=== PATIENT | female | born 1985 | race Two or more races ===

== ENCOUNTER 2016-10-26 20:28 | Emergency (ER) | payer SELFPAY ==
[~2016-10-26] VITALS: Ht 157.5 cm; Wt 68.0 kg
[2016-10-26 20:42] VITALS: BP 129/70
[2016-10-26 22:40] LABS: OBC FLU VALID
--- NOTE | 2016-10-26 22:59 | PHYS DOC ---
Past Medical History Past Medical History: No Pertinent History Past Surgical History: No Surgical History Alcohol Use: None Drug Use: None Adult General Chief Complaint Chief Complaint: FEVER HPI HPI This is a 31-year-old female who's had 1 day of myalgias and cough with mild nausea but no vomiting. Patient states she has been able to tolerate oral fluids but has felt somewhat weaker than normal. Patient is approximately 6 months . She denies any vaginal bleeding or discharge. She denies any dysuria or hematuria. She denies any abdominal pain. She reports subjective fever and chills with her symptoms. Review of Systems Review of Systems Constitutional: Has fever, denies chills [] Eyes: Denies change in visual acuity, redness, or eye pain [] HENT: Denies nasal congestion or sore throat [] Respiratory: Denies cough or shortness of breath [] Cardiovascular: No additional information not addressed in HPI [] GI: Denies abdominal pain, has nausea, denies vomiting, denies bloody stools or diarrhea [] : Denies dysuria or hematuria [] Musculoskeletal: Denies back pain or joint pain [] Integument: Denies rash or skin lesions [] Neurologic: Denies headache, focal weakness or sensory changes [] Endocrine: Denies polyuria or polydipsia [] Current Medications Current Medications Current Medications Medications (Trade) Dose Ordered Sig/Lesvia Start Time Stop Time Status Last Admin Dose Admin Oseltamivir Phosphate (Tamiflu) 75 mg 1X ONCE 10/26/16 23:15 10/26/16 23:15 DC 10/26/16 23:00 75 MG Allergies Allergies Allergies Coded Allergies Type Severity Reaction Last Updated Verified No Known Drug Allergies 10/26/16 No Physical Exam Physical Exam Constitutional: Well developed, well nourished, no acute distress, non-toxic appearance. [] HENT: Normocephalic, atraumatic, bilateral external ears normal, oropharynx moist, no oral exudates, nose normal. [] Eyes: PERRLA, EOMI, conjunctiva normal, no discharge. [] Neck: Normal range of motion, no tenderness, supple, no stridor. [] Cardiovascular:Heart rate regular rhythm, no murmur [] Lungs & Thorax: Bilateral breath sounds clear to auscultation [] Abdomen: Bowel sounds normal, soft, no tenderness, no masses, no pulsatile masses. [] Skin: Warm, dry, no erythema, no rash. [] Back: No tenderness, no CVA tenderness. [] Extremities: No tenderness, no cyanosis, no clubbing, ROM intact, no edema. [] Neurologic: Alert and oriented X 3, normal motor function, normal sensory function, no focal deficits noted. [] Psychologic: Affect normal, judgement normal, mood normal. [] Current Patient Data Vital Signs Vital Signs Date Time Temp Pulse Resp B/P Pulse Ox O2 Delivery O2 Flow Rate FiO2 10/26/16 20:42 98.5 108 20 100 Room Air 98.5 Lab Values Laboratory Tests Test 10/26/16 22:11 Influenza Type A Antigen Positive (NEGATIVE) Influenza Type B Antigen Negative (NEGATIVE) EKG EKG [] Radiology/Procedures Radiology/Procedures [] Course & Med Decision Making Course & Med Decision Making Pertinent Labs and Imaging studies reviewed. (See chart for details) 31-year-old female who is approximately 6 months is completely nontoxic in appearance and has influenza swabs that. are positive for influenza type a. A by mouth dose of Tamiflu was administered in the department and I'll be writing her a prescription for Tamiflu at home. I followed up with the OB doctor, Dr. Martinez, who states that Tamiflu is safe to be given in and that he would advise to treat her and to have the patient follow closely with her OB doctor the next several days. I gave her strict instructions to take Tamiflu and to remain well-hydrated and to return to the ER if she develops any worsening of her symptoms. She is very agreeable with this plan. There is no indication at this time to perform any laboratory workup as the patient is nontoxic and able to tolerate oral fluids. Dragon Disclaimer Dragon Disclaimer This electronic medical record was generated, in whole or in part, using a voice recognition dictation system. Departure Departure Impression: Primary Impression: Influenza A Additional Impression: Disposition: 01 HOME, SELF-CARE Condition: STABLE Referrals: NO PCP (PCP) Patient Instructions: Influenza A (H1N1) Additional Instructions: Please follow up with your OB doctor in the next 1-2 days for your influenza symptoms. Continue to drink plenty of fluids. Take your tamiflu as prescribed. Return to the ER if you develop any worsening of your symptoms. Scripts Oseltamivir Phosphate (Tamiflu)75 Mg [id number] Mg PO BID FLU #9 TAB Ref 0 Prov:ANISH MACK DO 10/26/16 Problem Qualifiers ANISH MACK DO Oct 26, 2016 22:58
[2016-10-26] MEDS ORDERED: OSEL75CA PO (23:01)
[2016-10-26] MEDS ORDERED: OSELTAMIVIR 75 MG CAPSULE PO ONE (23:15)
== END 2016-10-26 23:04 | disposition home or self-care (01) ==
LOC: ER 20:28
DX: O99.519 Diseases of the respiratory system complicating pregnancy, unspecified trimester (principal); J10.1 Influenza due to other identified influenza virus with other respiratory manifestations; Z3A.00 Weeks of gestation of pregnancy not specified
CPT/HCPCS: 87804; 99284

== ENCOUNTER 2017-01-16 03:02 | Inpatient (IN) | payer SELFPAY ==
[~2017-01-16] VITALS: Ht 148.6 cm; Wt 75.7 kg
[~2017-01-16 03:02] MED LIST: OSEL75CA PO
[2017-01-16] MEDS ORDERED: 0.9 % SODIUM CHLORIDE 10 ML DISP.SYRIN. IV PRN ×2 (04:45→12:45)
[2017-01-16] MEDS ORDERED: LIDOCAINE 1% PF 30 ML VIAL. INJ PRN (04:45)
[2017-01-16] MEDS ORDERED: TERBUTALINE 1 MG/ML VIAL. SQ PRN (04:45)
[2017-01-16] MEDS ORDERED: OXYTOCIN 30 UNIT/500 ML PREMIX 500 ML IV PRN ×2 (04:45→12:45)
[2017-01-16] MEDS ORDERED: ONDANSETRON PF 4 MG/2 ML VIAL. IV PRN (04:45)
[2017-01-16] MEDS ORDERED: ACETAMINOPHEN 325 MG TABLET. PO PRN ×2 (04:45→12:45)
[2017-01-16] MEDS ORDERED: FENTANYL PF 100 MCG/2 ML VIAL. IV PRN (04:45)
[2017-01-16] MEDS ORDERED: BUTORPHANOL 2 MG/ML VIAL. IV PRN (04:45)
[2017-01-16] MEDS ORDERED: MAG HYDROX/ALUMINUM HYD/SIMETH 30 ML ORAL.SUSP PO PRN ×2 (04:45→12:45)
[2017-01-16 04:49] VITALS: BP 119/60
[2017-01-16] MEDS: IV RINGERS,LACTATED 1000ML 1,000 ML IV SCH ×3 (05:10→20:35)
[2017-01-16 05:56] LABS: HEMATOCRIT 34.4 % (36.0-47.0); HEMOGLOBIN 11.2 g/dL (12.0-15.5); RED BLOOD COUNT 3.98 x10^6/uL (3.50-5.40); RED CELL DISTRIBUTION WIDTH 14.1 % (11.5-14.5); WHITE BLOOD COUNT 8.8 x10^3/uL (4.0-11.0)
[2017-01-16 06:58] LABS: BILIRUBIN,URINE NEGATIVE (NEG); GLUCOSE,URINE NEGATIVE (NEG); NITRITE,URINE NEGATIVE (NEG); PH,URINE 6.5; PROTEIN,URINE NEGATIVE (NEG-TRACE); UROBILINOGEN,URINE 0.2 mg/dL (0.2 mg/dL)
[2017-01-16 07:29] LABS: BACTERIA,URINE MANY /HPF (0-FEW); RBC,URINE 0 /HPF (0-2); SQUAMOUS EPITHELIAL CELL,UR MANY /LPF
[2017-01-16] MEDS ORDERED: BETAMET ACET&NA PHOS 30 MG/5 ML VIAL. IM ONE (10:30)
[2017-01-16] MEDS ORDERED: OXYTOCIN 10 UNIT/ML VIAL. ONE (12:28)
[2017-01-16] MEDS ORDERED: PHENYLEPH/MINERAL OIL/PETROLAT RECTAL OINTMENT 28GM TUBE. RC PRN (12:45)
[2017-01-16] MEDS ORDERED: DIPHENHYDRAMINE HCL 25 MG CAPSULE PO PRN (12:45)
[2017-01-16] MEDS ORDERED: OXYTOCIN 10 UNIT/ML VIAL. IM ONE (12:45)
[2017-01-16] MEDS ORDERED: SIMETHICONE 80 MG TAB.CHEW PO PRN (12:45)
[2017-01-16] MEDS ORDERED: BENZOCAINE 20% TOPICAL AEROSOL SPRAY 57GM CAN. TP PRN (12:45)
[2017-01-16] MEDS ORDERED: HYDROCORTISONE 1% TOPICAL OINTMENT 30GM TUBE. TP PRN (12:45)
[2017-01-16] MEDS ORDERED: MAGNESIUM HYDROXIDE 2,400 MG/30 ML ORAL.SUSP. PO PRN (12:45)
[2017-01-16] MEDS ORDERED: ZOLPIDEM 5 MG TABLET. PO PRN (12:45)
--- NOTE | 2017-01-16 12:46 | PDOC ---
VAGINAL DELIVERY DATE DATE: 01/16/17 TIME: 12:44 : 4 Para: 3 EDC: February 07, 2017 VAGINAL DELIVERY: VTX 05/17/9 SEX: Male WEIGHT 7/5 Nuchal Cord: No Amniotic Fluid: Clear PAIN: Natural EPISIOTOMY: No EXTENSION: No COMPLICATIONS None CONDITION Stable Signs of Intrauterine Infectio: None Shoulder Dystocia: No DIAGNOSIS TIUP del Problems: ROBINA JOHNS MD Jan 16, 2017 12:46
[2017-01-16] MEDS ORDERED: IBUPROFEN 800 MG TABLET. PO SCH (14:00)
[2017-01-16 16:00] VITALS: BP 115/64
[2017-01-16] MEDS: FERROUS SULFATE 325 MG TABLET. PO SCH (17:11)
[2017-01-16] MEDS: IBUPROFEN 600 MG TABLET. PO PRN (17:12)
[2017-01-16 18:49] VITALS: BP 88/42
[2017-01-16] MEDS: IBUPROFEN 800 MG TABLET. PO SCH (22:00)
[2017-01-17] VITALS (12 sets, daily range): BP systolic 79–123; BP diastolic 37–71
[2017-01-17] MEDS: IV RINGERS,LACTATED 1000ML 1,000 ML IV SCH (04:25)
[2017-01-17] MEDS: IBUPROFEN 800 MG TABLET. PO SCH ×2 (06:00→22:00)
[2017-01-17] MEDS: IBUPROFEN 600 MG TABLET. PO PRN (06:32)
[2017-01-17] MEDS ORDERED: ONDANSETRON PF 4 MG/2 ML VIAL. IV PRN (07:00)
[2017-01-17] MEDS ORDERED: FENTANYL PF 100 MCG/2 ML VIAL. IV PRN (07:00)
[2017-01-17] MEDS ORDERED: HYDROMORPHONE 2 MG/ML VIAL. IV PRN (07:00)
[2017-01-17] MEDS ORDERED: MORPHINE SULFATE 2 MG/ML DISP.SYRIN. IV PRN (07:00)
[2017-01-17] MEDS ORDERED: PROCHLORPERAZINE 10 MG/2 ML VIAL. IV PRN (07:00)
[2017-01-17] MEDS ORDERED: IV RINGERS,LACTATED 1000ML 1,000 ML IV SCH ×2 (07:00→07:45)
[2017-01-17] MEDS ORDERED: LIDOCAINE 1% 1 ML SYRINGE. ID PRN (07:00)
[2017-01-17] MEDS ORDERED: BUPIVAC MPF-EPI 0.5%-1:200000 30 ML VIAL. ONE (07:02)
--- NOTE | 2017-01-17 13:30 | PDOC ---
OB Progress Note Date of Service 01/17/17 Time of Evaluation 1330 Notes Pt. feeling well. No complaints. Pain controlled. Last liquids was at 1115. She is to have PP BTL this evening. Lab Laboratory Tests Test 01/16/17 05:10 01/16/17 06:00 01/17/17 03:53 White Blood Count 8.8x10^3/uL (4.0-11.0) Red Blood Count 3.98x10^6/uL (3.50-5.40) Hemoglobin 11.2g/dL (12.0-15.5) Hematocrit 34.4% (36.0-47.0) 32.0% (36.0-47.0) Mean Corpuscular Volume 86fL (79-100) Mean Corpuscular Hemoglobin 28pg (25-35) Mean Corpuscular Hemoglobin Concent 33g/dL (31-37) Red Cell Distribution Width 14.1% (11.5-14.5) Platelet Count 198x10^3/uL (140-400) Sodium Level 139mmol/L (136-145) Potassium Level 4.0mmol/L (3.5-5.1) Chloride Level 106mmol/L (98-107) Carbon Dioxide Level 21mmol/L (21-32) Anion Gap 12 (6-14) RPR Titer Additional Testing Non reactive (Non Reactive) Urine Collection Type Void Urine Color Yellow Urine Clarity Cloudy Urine pH 6.5 Urine Specific [place] 1.010 Urine Protein Negativemg/dL (NEG-TRACE) Urine Glucose (UA) Negativemg/dL (NEG) Urine Ketones (Stick) Negativemg/dL (NEG) Urine Blood Large (NEG) Urine Nitrite Negative (NEG) Urine Bilirubin Negative (NEG) Urine Urobilinogen Dipstick 0.2mg/dL (0.2 mg/dL) Urine Leukocyte Esterase Moderate (NEG) Urine RBC 0/HPF (0-2) Urine WBC 1-4/HPF (0-4) Urine Squamous Epithelial Cells Many/LPF Urine Bacteria Many/HPF (0-FEW) Laboratory Tests Test 01/17/17 03:53 Hematocrit 32.0% (36.0-47.0) Medications Current Medications Sodium Chloride 3 ml 3 ml QSHIFT PRN IV AFTER MEDS AND BLOOD DRAWS; Start 01/16 at 04:45; Stop 4/10/17 at 18:20; Status DC Lactated Ringer's (Iv Lactated Ringers) 1,000 ml @ 125 mls/hr Q8H IV Last administered on 01/16/17 11:28; Start 01/16/17 at 04:35; Stop 01/17/17 at 04:27 ; Status DC Butorphanol Tartrate (Stadol) 2 mg PRN Q1HR PRN IV Severe labor pain; Start 07/25 at 04:45; Stop 01/16/17 at 18:20; Status DC Fentanyl Citrate (Fentanyl 2ml Vial) 100 mcg PRN Q20MIN PRN IV Labor pain Last administered on 01/16/17 09:51; Start 01/16/17 at 04:45; Stop 01/16/17 at 18:20 ; Status DC Acetaminophen (Tylenol) 650 mg PRN Q6HRS PRN PO MILD PAIN / TEMP; Start at 04:45; Stop 01/16/17 at 18:20; Status DC Ondansetron HCl (Zofran) 4 mg PRN Q4HRS PRN IV NAUSEA/VOMITING; Start 01/16/17 at 04:45; Stop 01/16/17 at 18:20; Status DC Al Hydroxide/Mg Hydroxide (Mylanta Plus Xs) 30 ml PRN Q4HRS PRN PO HEARTBURN / GAS; Start 01/16/17 at 04:45; Stop 01/16/17 at 17:55; Status DC Terbutaline Sulfate (Brethine) 0.25 mg 1X PRN PRN SQ SEE COMMENTS; Start at 04:45; Stop 01/16/17 at 18:20; Status DC Lidocaine HCl 30 ml 30 ml 1X PRN PRN INJ SEE COMMENTS; Start 01/16/17 at 04:45 ; Stop 01/16/17 at 18:20; Status DC Oxytocin/Sodium Chloride (Oxytocin Premix Infusion) 500 ml @ 0 mls/hr CONT PRN PRN IV Post delivery bleeding Last administered on 01/16/17 10:11; Start at 04:45; Stop 01/16/17 at 18:20; Status DC Ibuprofen (Motrin) 600 mg PRN Q6HRS PRN PO PAIN Last administered on 01/17/17 06:32; Start 01/16/17 at 04:45 Betamethasone Acet/Betameth SodPhos (Celestone Soluspan) 12 mg 1X ONCE IM Last administered on 01/16/17 10:07; Start 01/16/17 at 10:30; Stop 01/16/17 at 10:31; Status DC Oxytocin (Pitocin) 10 unit STK-MED ONCE .ROUTE ; Start 01/16/17 at 12:28; Stop 01/16/17 at 12:29; Status DC Oxytocin (Pitocin) 10 unit 1X ONCE IM Last administered on 01/16/17 12:40; Start 01/16/17 at 12:45; Stop 01/16/17 at 12:46; Status DC Sodium Chloride 10 ml 10 ml QSHIFT PRN IV AFTER MEDS AND BLOOD DRAWS; Start 07/25 at 12:45 Oxytocin/Sodium Chloride (Oxytocin Premix Infusion) 500 ml @ 62.5 mls/hr CONT PRN IV SEE I/O RECORD; Start 01/16/17 at 12:45; Stop 01/16/17 at 20:44; Status DC Acetaminophen (Tylenol) 650 mg PRN Q6HRS PRN PO MILD PAIN / TEMP; Start at 12:45 Ibuprofen (Motrin) 800 mg Q8HRS PO ; Start 01/16/17 at 14:00; Stop 01/16/17 at 17:53; Status DC Magnesium Hydroxide (Milk Of Magnesia) 2,400 mg PRN DAILY PRN PO CONSTIPATION; Start 01/16/17 at 12:45 Al Hydroxide/Mg Hydroxide (Mylanta Plus Xs) 30 ml PRN Q4HRS PRN PO HEARTBURN / GAS; Start 01/16/17 at 12:45 Simethicone (Gas-X) 80 mg PRN AFTMEALHC PRN PO GAS / BLOATING; Start 01/16/17 at 12:45 Diphenhydramine HCl (Benadryl) 25 mg PRN Q6HRS PRN PO ITCHING; Start 01/16/17 at 12:45 Benzocaine (Americaine) 1 spray PRN QID PRN TP TOPICAL PAIN; Start 01/16/17 at 12:45 Phenyleph/Shark Oil/Min Oil/Petrol (Preparation H) 1 neela PRN QID PRN RC RECTAL PAIN; Start 01/16/17 at 12:45 Hydrocortisone (Cortaid) 1 neela PRN QID PRN TP RECTAL PAIN; Start 01/16/17 at 12 :45 Ferrous Sulfate (Feosol) 325 mg BIDWMEALS PO Last administered on 01/16/17t 17: 11; Start 01/16/17 at 17:00 Zolpidem Tartrate (Ambien) 5 mg PRN QHS PRN PO INSOMNIA, MAY REPEAT X1; Start 01/16/17 at 12:45 Info (Do NOT chart on this placeholder) 1 ea 1X PRN PRN MC SEE COMMENTS; Start 01/16/17 at 12:45 Acetaminophen/ Hydrocodone Bitart (Lortab 5/325) 1 tab PRN Q4HRS PRN PO PAIN; Start 01/16/17 at 12:45 Ondansetron HCl (Zofran) 4 mg PRN Q6HRS PRN IV NAUSEA/VOMITING; Start 01/17/17 at 07:00; Stop 01/18/17 at 06:59 Fentanyl Citrate (Fentanyl 2ml Vial) 25 mcg PRN Q5MIN PRN IV MILD PAIN; Start 01/17/17 at 07:00; Stop 01/18/17 at 06:59 Fentanyl Citrate (Fentanyl 2ml Vial) 50 mcg PRN Q5MIN PRN IV MODERATE PAIN; Start 01/17/17 at 07:00; Stop 01/18/17 at 06:59 Morphine Sulfate 1 mg 1 mg PRN Q10MIN PRN IV SEVERE PAIN; Start 01/17/17 at 07: 00; Stop 01/18/17 at 06:59 Lactated Ringer's (Iv Lactated Ringers) 1,000 ml @ 0 mls/hr Q0M IV ; Start 08/25 at 07:00; Stop 01/17/17 at 07:00; Status DC Lidocaine HCl 2 ml PRN 1X PRN ID PRIOR TO IV START; Start 01/17/17 at 07:00; Stop 01/18/17 at 06:59 Hydromorphone HCl (Dilaudid) 0.5 mg PRN Q10MIN PRN IV SEV PAIN, Second choice; Start 01/17/17 at 07:00; Stop 01/18/17 at 06:59 Prochlorperazine Edisylate (Compazine) 5 mg PACU PRN PRN IV NAUSEA, MRX1; Start 01/17/17 at 07:00; Stop 01/18/17 at 06:59 Ibuprofen (Motrin) 800 mg Q8HRS PO ; Start 01/16/17 at 22:00 Bupivacaine HCl/ Epinephrine Bitart 30 ml 30 ml STK-MED ONCE .ROUTE ; Start 08/25 at 07:02; Stop 01/17/17 at 07:03; Status DC Lactated Ringer's (Iv Lactated Ringers) 1,000 ml @ 75 mls/hr [id number] IV ; Start 01/17/17 at 07:45 Active Scripts Active Tamiflu (Oseltamivir Phosphate) 75 Mg Capsule 75 Mg PO BID Exam Abd: soft, non tender, fundus firm Assessment PPD#1 s/p Plan of Care: Continue current Tx, Mgmt GERTRUDIS MORENO Jr, MD Jan 17, 2017 13:30
[2017-01-17] MEDS ORDERED: SEVOFLURANE 61 TO 120 MINUTES. IH ONE (18:01)
[2017-01-17] MEDS ORDERED: ONDANSETRON PF 4 MG/2 ML VIAL. ONE (18:02)
[2017-01-17] MEDS ORDERED: ROCURONIUM 50 MG/5 ML VIAL. ONE (18:02)
[2017-01-17] MEDS ORDERED: LIDOCAINE 2% 100 MG/5 ML SYRINGE. ONE (18:02)
[2017-01-17] MEDS ORDERED: FENTANYL PF 100 MCG/2 ML VIAL. ONE (18:02)
[2017-01-17] MEDS ORDERED: PROPOFOL 20 ML IV ONE (18:02)
[2017-01-17] MEDS ORDERED: DEXAMETHASONE SOD PHOS 20 MG/5 ML VIAL. ONE (18:02)
[2017-01-17] MEDS ORDERED: MIDAZOLAM HCL/PF 2 MG/2 ML VIAL. ONE (18:02)
[2017-01-17] MEDS ORDERED: NEOSTIGMINE METHYLSULFATE 5 MG/5 ML SYRINGE. ONE (18:06)
[2017-01-17] MEDS ORDERED: GLYCOPYRROLATE 1 MG/5 ML VIAL. ONE (18:06)
[2017-01-17] MEDS ORDERED: SUCCINYLCHOLINE 200 MG/10 ML VIAL. ONE (18:06)
[2017-01-17] MEDS ORDERED: KETOROLAC TROMETHAMINE 30 MG/ML INJ. ONE (19:41)
--- NOTE | 2017-01-17 19:43 | PDOC ---
BRIEF OPERATIVE NOTE Pre-Op Diagnosis Multiparous desires permanent sterilization Post-Op Diagnosis Same Procedure Performed PPBTL Surgeon Juan Timber Repairer None Anesthesia Type: General Blood Loss 20cc Specimens Obtained R and L ovaducts Complications None ROBINA JOHNS MD Jan 17, 2017 19:43
[2017-01-17] MEDS: FENTANYL PF 100 MCG/2 ML VIAL. IV PRN ×2 (19:50→20:00)
[2017-01-17] MEDS ORDERED: KETOROLAC TROMETHAMINE 30 MG/ML INJ. IV ONE (20:00)
--- NOTE | 2017-01-17 22:55 | OP ---
DATE OF SURGERY: 01/17/2017 PREOPERATIVE DIAGNOSIS: Multiparous, desires permanent sterilization. POSTOPERATIVE DIAGNOSIS: Multiparous, desires permanent sterilization. PROCEDURE: bilateral tubal ligation. SURGEON: Jin Martinez MD LOAN OPERATIONS SPECIALIST: None. ANESTHESIA: General. ESTIMATED BLOOD LOSS: 20 mL. FLUIDS: Crystalloid. SPECIMENS: Right and left lower lobe. DESCRIPTION OF PROCEDURE: After risks, benefits, indications, and alternatives were discussed in detail with the patient, the patient was brought to the OR theater, placed in supine position. After adequate general anesthesia, the patient was prepped and draped in usual sterile manner. Attention was then turned to the anterior abdominal wall. A transverse infraumbilical incision was made sharply with a scalpel. The rectus fascia was identified, grasped x 2 with Wild clamps, elevated way above the abdominal contents, was incised sharply with the scalpel. Parietal peritoneum was entered bluntly with gloved hand. [place] retractor were used first to displace the incision over the right cornu. The right tube was grasped followed to its fimbriated end. A relatively avascular ____ ampullary region was identified and mesosalpinx had a window created 2-0 plain ties were used to doubly ligate the tube approximately 2 cm apart. This tube was transected between its ligatures ____ tube were cauterized same procedure. The same procedure was done on the opposite side. Fascia was reapproximated with 0 Vicryl in a running manner. Skin was reapproximated with 4-0 Monocryl in subcuticular fashion. Sponge, needle and instrument counts were correct x 2 per nursing staff. JIN MARTINEZ MD DR: BEBO/marika JOB#: [id number] / [id number]
[2017-01-17] MEDS: HYDROCODONE/APAP 5/325MG TABLET. PO PRN (22:59)
[2017-01-18 02:55] VITALS: BP 90/43
[2017-01-18] MEDS: IBUPROFEN 600 MG TABLET. PO PRN (04:15)
[2017-01-18] MEDS: HYDROCODONE/APAP 5/325MG TABLET. PO PRN (04:15)
[2017-01-18 05:55] VITALS: BP 106/54
[2017-01-18] MEDS: IBUPROFEN 800 MG TABLET. PO SCH (05:55)
[2017-01-18] MEDS: FERROUS SULFATE 325 MG TABLET. PO SCH (08:00)
--- NOTE | 2017-01-18 09:31 | PDOC1 ---
OB - History Hx of Present Care: Good Care Ultrasounds: Normal mid trimester US Obstetrical Complications: None Medical Complications: None Past Family/Social History * Past Medical, Surgical, Family and Obstetric Histories reviewed from chart. Blood Type: A+ Rubella: Immune RPR/VDRL: Negative GBS Status: Negative HBsAG: Negative OB - Chief Complaint & HPI Date of Admission: Date of Admission: Jan 16, 2017 at 04:38 Chief Complaint/History : 4 Para: 3 EDC: February 07, 2017 Reason for admission: active labor Admission Nurse Assessment Rev: Yes Problems: OB - Admission Exam Physical Exam Vitals: VS - Last 72 Hours, by Label Date Time Temp Pulse Resp B/P Pulse Ox O2 Delivery O2 Flow Rate FiO2 01/18/17 05:55 98.2 58 18 106/54 97 Room Air 98.2 01/18/17 04:15 17 Room Air 01/18/17 02:55 98.7 75 16 90/43 96 Room Air 98.7 01/18/17 00:00 18 Room Air 01/17/17 23:10 98.2 56 16 103/53 96 Room Air 98.2 01/17/17 22:59 18 Room Air 01/17/17 22:10 98.1 60 16 122/68 97 Room Air 98.1 01/17/17 21:40 97.6 58 18 123/71 96 Room Air 97.6 01/17/17 21:10 98.1 64 17 118/61 97 Room Air 98.1 01/17/17 20:55 97.5 69 18 108/67 97 Room Air 97.5 01/17/17 20:40 97.7 61 16 120/66 95 Room Air 97.7 01/17/17 20:25 97.5 68 17 102/55 94 Room Air 97.5 01/17/17 20:07 97.1 76 15 105/61 95 Room Air 97.1 01/17/17 20:00 15 100 Room Air 01/17/17 19:52 97.1 59 12 105/49 100 Simple Mask 10.0 97.1 01/17/17 19:50 15 100 Simple Mask 10.0 01/17/17 19:37 Room Air 01/17/17 19:37 97.1 84 12 130/53 98 Room Air 10 97.1 Simple Mask 01/17/17 16:39 97.2 61 18 100/60 98 Room Air 97.2 01/17/17 16:00 97.7 60 20 95/50 98 Room Air 97.7 01/17/17 14:00 97.4 69 20 95/49 98 Room Air 97.4 01/17/17 10:15 97.6 81 20 97/60 99 Room Air 97.6 01/17/17 09:45 Room Air 01/17/17 05:30 97.7 59 12 79/37 96 Room Air 97.7 01/17/17 01:15 98.4 67 16 105/45 98 Room Air 98.4 01/16/17 20:58 Room Air 01/16/17 18:49 98.9 73 88/42 99 98.9 01/16/17 16:00 98.7 72 115/64 98.7 01/16/17 10:21 18 Room Air 01/16/17 09:51 22 Room Air 01/16/17 04:49 98.0 65 20 119/60 Room Air 98.0 HEENT: Normal, Nasal Mucosa Normal, Oropharynx Normal, Moist Membranes, Fontanelles Normal Lungs: Clear, Equal Abdomen: Gravid Extremities: Normal Pulses, No tenderness or swelling Cervical Dilatation: 4cm Effacement: 50% Station: Ballotable Membranes: Intact Amniotic Fluid: Clear Accelerations: Accelerations Present Contractions on Admission: < 5 Minutes Apart Intensity: Moderate Assessment/Plan Assessment/Plan 36/5 IUP LABOR ACS ROBINA JOHNS MD Jan 18, 2017 09:31
--- NOTE | 2017-01-18 09:34 | PDOC3 ---
OB DISCHARGE SUMMARY DATE OF ADMISSION: 01/16/17 DATE OF DISCHARGE: 01/18/17 REASON FOR ADMISSION: Onset of labor PROCEDURES: Ultrasound INTRAPARTUM PROCEDURES: Spontanous Vag Deliv OPERATIONS: None DISCHARGE DIAGNOSIS: Term Delivered DISCHARGE INFORMATION: Activity, Diet HOSPITAL COURSE Unremarkable CONDITION AT DISCHARGE Stable ROBINA JOHNS MD Jan 18, 2017 09:34
[2017-01-18 10:25] VITALS: BP 98/44
[2017-01-18 13:10] VITALS: BP 112/64
--- NOTE | 2017-01-19 15:05 | PATHOLOGY ---
PATHOLOGY REPORT * * * * * * * * FINAL DIAGNOSIS: 519 gram late placenta with attached membranes and umbilical cord: - Focal mild villous edema. COMMENT: There is no evidence of an acute chorioamnionitis or villitis. The completeness of the placental disc cannot be determined with certainty due to the fragmented and torn nature of the placenta. (JPM:mgcosme; d/t: 01/19/17) REPORT ELECTRONICALLY SIGNED BY: Arvind Waggoner M.D. DATE/TIME: 01/19/2017 15:04 * * * * * * * * GROSS PATHOLOGY: The specimen is received in formalin, labeled "Berenice Pelaez and placenta." Received is a 519 g torn and fragmented placenta with attached umbilical cord and membranes. Upon reconstruction, the placenta measures 18.5 x 17.3 x 3.3 cm. The umbilical cord measures 38.7 cm in length and 1.3 cm in average diameter. It is white-emery, rubbery, trivascular, and has a paracentral insertion, 2.8 cm from the nearest placental margin. The helical twisting pattern is increased. No umbilical strictures or knots are grossly identified. The membranes are emery, thin, translucent, and have a marginal insertion. The point of membrane rupture cannot be determined. The surface is blue-coelho with a normal vessel distribution and a minimal amount of subchorionic fibrin deposition. Due to the fragmented and torn nature of the placenta, the completeness/intactness of the maternal surface cannot be determined. The maternal surface displays dark red cotyledons with adherent blood clots and minimal calcifications. Sectioning reveals bright red and spongy parenchyma. No masses or lesions are grossly identified. Office Service Coordinator sections are submitted as follows: A1 umbilical cord and surface vessels A2 membrane roll A3-A4 full-thickness sections of placenta (TTL; 01/18/2017) INITIAL CPT CODE(S): A; 80625 Professional services performed by [facility] at [address] [address] Technical services performed by [facility] at [address] [place] [address], [address], [place] [address]. SPECIMEN(S) RECEIVED: A.Placenta CLINICAL HISTORY: IUP 36.5 week gestation, EDC 02/09/17, , vaginal delivery of 7lb 4oz male @ 1200 on 01/16/17, 8-9-9 PATIENT: BERENICE PELAEZ /AGE: 1007/10/1985 (Age: 31) PATIENT #: [id number] ALT CASE #: SPECIMEN COLLECTION DATE: 01/16/2017 SPECIMEN RECEIVED DATE: 01/17/2017 [facility] - [address] [place] [address] - PHONE: [phone] * * * END OF REPORT * * *
--- NOTE | 2017-01-19 15:35 | PATHOLOGY ---
PATHOLOGY REPORT * * * * * * * * FINAL DIAGNOSIS: A. Fallopian tube, right tubal ligation: - Segment of fallopian tube confirmed. B. Fallopian tube, left tubal ligation: - Segment of fallopian tube confirmed. (JPM:; d/t: 01/19/17) REPORT ELECTRONICALLY SIGNED BY: Arvind Waggoner M.D. DATE/TIME: 01/19/2017 15:34 * * * * * * * * GROSS PATHOLOGY: A. Received in formalin labeled "Berenice Lowe and right portion of fallopian tube," is a pink-emery and non-fimbriated segment of fallopian tube measuring 2.0 cm in length and 0.8 cm in diameter. The tissue is submitted representatively in cassette A1. B. Received in formalin labeled "Berenice Lowe and left portion of fallopian tube," is a pink-emery, partially torn, and non-fimbriated segment of fallopian tube measuring 5.8 cm in length and 0.7 cm in diameter. The tissue is submitted representatively in cassette B1. (TTL; 01/18/2017) INITIAL CPT CODE(S): A; 11401 B; 33676 Professional services performed [place] [address] Technical services performed by [facility] at [address] [place] [address], [facility] [address], [place] [address]. SPECIMEN(S) RECEIVED: A.Right portion of fallopian tube B.Left portion of fallopian tube CLINICAL HISTORY: Request for sterilization PATIENT: BERENICE LOWE /AGE: 1007/10/1985 (Age: 31) PATIENT #: [id number] ALT CASE #: SPECIMEN COLLECTION DATE: 01/17/2017 SPECIMEN RECEIVED DATE: 01/18/2017 [facility] - [address] [place] [address] - PHONE: [phone] * * * END OF REPORT * * *
== END 2017-01-18 14:00 | disposition home or self-care (01) | DRG 767 ==
LOC: 3 SO LND 03:02 → OBSVTOIN 04:38 → 3 NORTH 16:10
PROVIDERS: ADMIT Specialist; ATTEND Specialist
PROC: 0UL70ZZ Occlusion of Bilateral Fallopian Tubes, Open Approach (ICD-10-PCS; 2017-01-17)
PROC: 10E0XZZ Delivery of Products of Conception, External Approach (ICD-10-PCS; principal; 2017-01-17 17:30)
DX: O80 Encounter for full-term uncomplicated delivery (principal); Z37.0 Single live birth; Z30.2 Encounter for sterilization; Z3A.39 39 weeks gestation of pregnancy
CPT/HCPCS: 36415; 80051; 81001; 85014; 85027; 86593; 86850; 86900; 86901; 87086; C1769; G0378; G0379; J0330; J0702; J1100; J1885; J2250; J2405; J2590; J2704; J2710; J3010; J3490; J7120